=== PATIENT | female | born 1995 | race Caucasian/White ===

== ENCOUNTER 2022-12-24 14:10 | Emergency (ER) | payer MEDICAID ==
[2022-12-24] MEDS ORDERED: Famotidine 20 MG Tab PO STA (14:23)
[2022-12-24] MEDS ORDERED: diphenhydrAMINE 50 MG/ML SDV IVPUSH ONE (14:23)
[2022-12-24] MEDS ORDERED: Famotidine 20 MG/2 ML SDV IVPUSH ONE (14:23)
[2022-12-24] MEDS ORDERED: Sodium Chloride 0.9% 10 ML Syringe FLUSH PRN (14:23)
[2022-12-24] MEDS ORDERED: Cetirizine 10 MG Tab PO STA (14:23)
[2022-12-24] MEDS ORDERED: Sodium Chloride 0.9% 2.5 ML Syringe FLUSH PRN (14:23)
[2022-12-24] MEDS ORDERED: Sodium Chloride 0.9% 1,000 ML IV ONE (14:23)
[2022-12-24] MEDS ORDERED: Ondansetron 4 MG/2 ML SDV IVPUSH ONE (14:23)
[2022-12-24] MEDS ORDERED: Dexamethasone 10 MG/ML SDV IVPUSH ONE (14:23)
== END 2022-12-24 16:05 | disposition home or self-care (01) ==
LOC: MW.ED 14:10
DX: T78.40XA Allergy, unspecified, initial encounter (principal); Z79.899 Other long term (current) drug therapy; W57.XXXA Bitten or stung by nonvenomous insect and other nonvenomous arthropods, initial encounter
CPT/HCPCS: 96374; 96375; 99283; J1100; J1200; J2405; J3490; J7030